=== PATIENT | male | born 1960 | race Caucasian/White ===

== ENCOUNTER → 2017-12-31 15:31 | Outpatient (CLI) | payer MEDICAID | END | disposition home or self-care (01) | LOC: D.MRI 15:31 | DX: M54.12 Radiculopathy, cervical region (principal) ==

== ENCOUNTER → 2019-04-15 08:12 | Outpatient (CLI) | payer MEDICAID | END | disposition home or self-care (01) | LOC: D.US 08:12 | PROVIDERS: ATTEND Nurse Practitioner Family | DX: N18.3 Chronic kidney disease, stage 3 (moderate) (principal); B20 Human immunodeficiency virus [HIV] disease; Z68.23 Body mass index [BMI] 23.0-23.9, adult ==